=== PATIENT | male | born 1960 | race Caucasian/White ===

== ENCOUNTER → 2017-03-27 19:46 | Outpatient (CLI) | payer OTHER | END | disposition home or self-care (01) | LOC: D.LABREF 19:46 | DX: Z13.9 Encounter for screening, unspecified (principal) ==

== ENCOUNTER 2017-07-03 06:02 | Day surgery (SDC) | payer OTHER ==
[~2017-07-03] VITALS: Ht 180.3 cm; Wt 86.4 kg
[2017-07-03 07:37] VITALS: BP 116/76; Ht 180.3 cm; Wt 86.4 kg
--- NOTE | 2017-07-03 10:19 | NUR ---
1000 IV DC WITH CATHER TIP INTACT
--- NOTE | 2017-07-03 13:00 | HP ---
PATIENT: ALFREDO KIMBROUGH MEDICAL RECORD: [id number] ACCOUNT: [id number] LOCATION:[facility] : 60 ADMISSION DATE: 07/03/17 HISTORY AND PHYSICAL EXAMINATION CHIEF COMPLAINT: Desires screening colonoscopy. HISTORY OF PRESENT ILLNESS: The patient has been having no rectal bleeding. No abdominal pain. I performed a segmental resection of his colon for diverticulitis in the past. PAST MEDICAL AND SURGICAL HISTORY: Colon resection, history of diverticulitis with abscess. HOME MEDICINES: None. ALLERGIES: DEMEROL. REVIEW OF SYSTEMS: No CVA or seizures. No diabetes or thyroid problems. SOCIAL HISTORY: Nonsmoker. PHYSICAL EXAMINATION: GENERAL: The patient does not appear acutely ill. VITAL SIGNS: Reviewed. HEAD: External ears appear normal. EYES: Extraocular movements are intact. NECK: Trachea is midline. CHEST: No intercostal retractions. PULMONARY: Nonlabored. IMPRESSION: Desires screening colonoscopy. PLAN: Screening colonoscopy. TRANSINT:[id number] Voice Confirmation ID: [id number] DOCUMENT ID: [id number] ALFREDO SEVERINO MD at 1300 CC: AVANI TALLEY DO [id number] DICTATION DATE: 07/03/17 0833 [employer] MACHINE OPERATOR: 07/03/17 0851 [facility] 07/03/17 [id number] [place] [address]
--- NOTE | 2017-07-03 13:00 | OP ---
PATIENT NAME: MONCHO KIMBROUGH MEDICAL RECORD: [id number] :60 LOCATION:[facility] ADMISSION DATE: SURGEON: MONCHO SEVERINO MD DATE OF OPERATION: 07/03/2017 PREOPERATIVE DIAGNOSIS: Desires screening colonoscopy. POSTOPERATIVE DIAGNOSES: Desires screening colonoscopy with 2 colon polyps; one at 40 cm that was semi-pedunculated and was a 1.2 x 1.3 cm polyp, the second was at 25 cm, was somewhat pedunculated and was a 2.0 x 1.8 cm polyp. PROCEDURES: 1. Total colonoscopy to cecum. 2. Hot biopsy forceps polypectomies times 2. SURGEON: Moncho Severino MD. SYSTEMS DEVELOPMENT CONSULTANT: None. BLOOD LOSS: Minimal. ANESTHESIA: IV sedation. COMPLICATIONS: None. The risks, possible complications and alternatives to the procedure were explained to the patient. He elects to proceed. ENDOSCOPIC COURSE: The patient was conveyed to the endoscopy suite electively on 07/03/2017. IV sedation was induced by anesthesia staff. The patient was placed in the [place] position. A digital rectal examination was performed. The colonoscope was inserted through the anus. It was easily advanced to the cecum. The prep was adequate. I intubated the ileocecal valve. The ileum appeared normal. I slowly withdrew the endoscope. I dragged the folds. I irrigated and aspirated extensively. The pullback was greater than 18-minute pullback. Hot biopsy forceps polypectomies were performed. The polyps were removed in their entireties. A retroflexed view was obtained in the rectum. I then unretroflexed the scope and removed it under direct vision. The patient has enlarged internal and external hemorrhoids and may want to have a hemorrhoid procedure sometime in the future. This is something we can discuss in the office. I will plan for his next surveillance colonoscopy to be in 1 year. TRANSINT:[id number] Voice Confirmation ID: [id number] DOCUMENT ID: [id number] MONCHO SEVERINO MD at 1300 CC: AVANI TALLEY DO [id number] DICTATION DATE: 07/03/1711 SPRIGGER: 07/03/[address] [facility] 07/03/17 [place] [address]
== END 2017-07-03 10:15 | disposition home or self-care (01) ==
LOC: D.OPS 06:02
DX: Z12.11 Encounter for screening for malignant neoplasm of colon (principal); D12.5 Benign neoplasm of sigmoid colon; K64.8 Other hemorrhoids; K64.4 Residual hemorrhoidal skin tags; Z90.49 Acquired absence of other specified parts of digestive tract; Z88.5 Allergy status to narcotic agent; Z01.812 Encounter for preprocedural laboratory examination